=== PATIENT | male | born 1985 | race Caucasian/White ===

== ENCOUNTER 2018-03-10 11:28 | Day surgery (SDC) | payer BC, SELFPAY ==
--- NOTE | 2018-03-10 13:26 | PCM.PN.BLA ---
Progress Note My partner has seen and evaluated this patient has been appropriately worked up. He has a distal rupture of the patella tendon of the tubercle. He has been consented for repair. On examination he lacks an appropriate extensor mechanism. He has a palpable defect. MRI was reviewed. I discussed the history with the patient. I agree with my partners physical and examination. I have marked the H&P appropriately. At this time patient is comfortable proceeding with surgery with myself as my daughter was sick this week and unable to do his surgery and an expedient manner. Patient demonstrates the risk of the procedure including but not limited to blood loss, DVTs, PEs, neurovascular damage, infection, the risk of anesthesia including loss of life. Also risk of chronic weakness rerupture and instability. Patient demonstrates an understanding is comfortable with me assuming his care and would like to proceed as such. [facility] Office:
[2018-03-10 14:53] VITALS: BP 124/75; BP 150/85; PULSE 72; RESP 17; TEMP 36.3; O2SAT 100
[2018-03-10 15:00] VITALS: BP 136/77; BP 150/85; PULSE 65; RESP 16; O2SAT 100
[2018-03-10 15:15] VITALS: BP 121/92; BP 150/85; PULSE 90; RESP 18; O2SAT 97
[2018-03-10 15:30] VITALS: BP 130/73; BP 150/85; PULSE 63; RESP 18; TEMP 36.4; O2SAT 100
[2018-03-10] MEDS: HYDROcodone Bitartrate/Apap 5/325 Tablet PO (16:30)
--- NOTE | 2018-03-10 17:33 | PCM.OPRPT ---
Report of Operation Date of Procedure: 03/10/18 Pre-Operative Diagnosis: Left knee patella tendon rupture Post-Operative Diagnosis: Left knee patella tendon rupture Surgery/Procedure Performed:: Left knee patella tendon rupture repair Description of Surgical Findings:: Mid substance patellar tendon repair repaired distal over proximal with bone tunnels in the tibia Minimal tension on the repair until 30 degrees flexion. Repaired in full extension steam box tender: Paulino Hodges Type of Anesthesia:: Spinal Anesthesiologist: Camacho Rosado Special Medications: clindamycin Estimated Blood Loss (mL): 20 Fluids Replaced: Crystalloid Description of Procedure: Brief History Operative Indications: 32-year-old male who fell on the ice with MRI confirming quadriceps tendon repair and lacking extensor mechanism on examination. On the date of procedure patient's left lower extremity is was marked in the preoperative area. The patient was then taken back to the operating room where they were placed on the table in the supine position. All bony prominences were identified a well-padded. Anesthesia assumed control of the C-spine and airway and remained controlled throughout the remainder of the procedure. A tourniquet was placed on the left upper thigh and the left leg was prepped in a sterile fashion. The surgeon scrubbed at this time. Upon reentering the room the left extremity was draped in a standard orthopedic fashion. A timeout was then called and everyone agreed upon the side, the site, the procedure to be performed, patient's identity and antibiotics given. Attention was directed to the left leg where a midline incision was made. Dissection was taken down through skin, subcutaneous tissues and fat. At this point we were able to identify the rupture and got a gush of serosanguineous fluid. The wound was copiously irrigated with normal saline. The proximal aspect of the patella patella tendon was debrided to healthy tissue. The distal portion was also debrided and identified. At this time it looked like a mid substance type rupture with the majority of the healthy tissue being proximally. It appeared that the proximal tissue was also deeper tissue. At this time we elected to perform a pants over vest type repair. Allis clamps were then placed on the patella tendon tendon was pulled distally. 2 #5 FiberWire's were used to place 2 Krak?w stitches giving us all 4 suture limbs. At this time the 4 limbs were passed distally and tied down through the area of the patella tendon which was attached to the tibial tubercle. We then drilled to bone tunnels and passed the 2 limbs of each tied down FiberWire through a separate bone tunnel and tied this down over bone tunnels in the tibial crest. Finally a #2 FiberWire was used to sew the retinacular repair over the central portion of the tendon. The tendon repair was stressed and did not see stress until 30of flexion.The wound was irrigated out with normal saline. Skin was closed with 2-0 Vicryl and sheryl. A sterile compressive dressing was placed. A knee immobilizer brace was then placed on the operative extremity locked in extension. Patient was awakened by anesthesia and transferred to the [facility] then taken to the PACU for recovery. Post op plan PT: Toe-touch weightbearing with TROM brace locked in extension 2 weeks with transition to partial weightbearing 50% at the 2-week postop visit until 6 weeks postop Brace: locked in extension until 2 weeks postop at which time we will proceed with range of motion. At first visit patient should have 1 PT visit with brace opened to 0-45 flexion with flexion advanced 15 degrees per week. Patient may also start quad sets and straight leg raises at first visit. Goal is 90 degrees of flexion at 9 weeks postop. Will begin strengthening at 9 weeks. Prior to 9 weeks pt only allowed active flexion and passive extension. Follow up: 2 weeks for wound check and removal of sheryl - Complications none - Admit VTE Documentation VTE Present on Admission: No VTE Mechan Device Prophylaxis: SCD's VTE Pharm Prophylaxis ordered?: Yes
[2018-03-10 20:01] VITALS: BP 112/60; BP 150/85; PULSE 78; RESP 16; TEMP 36.8; O2SAT 99
--- OUTSIDE RECORDS SUMMARY | 2018-06-11 20:31 | XMS RPT_ITS ---
:1985 Author Organization OHIP Care Team Providers Name Role Phone CHRISTO ATKINS DO Attending Unavailable PHYSICIAN, NONE Primary Care Unavailable DR. JESSEE WEAVER DO Attending Unavailable WILBERT JAIMES, DR. BARTOLO Rutherford Primary Care Unavailable BOZENA RUEDA MD Attending Unavailable WILBERT JAIMES, DR. BARTOLO Rutherford Primary Care Unavailable YANG SANCHEZ MD Attending Unavailable YANG SANCHEZ MD Referring Unavailable WILBERT JAIMES, DR. BARTOLO Rutherford Primary Care Unavailable Primay Care Physicia, No Primary Care Unavailable Yang Sanchez Attending Yang Reilly Referring Unavailable PROBLEMS PROBLEMS No Problem Records FoundPROCEDURES PROCEDURES No Procedure Records FoundRESULTS RESULTS UA Collected: 03/25/2018 Status: F Source: [facility] 10:35 [facility] REPOSITORY TYPE CODE TESTS RESULT OUT OF RANGE REFERENCE UNITS LAB SPCUA(JUDITH NC) UA Specimen Type Clean Catch LAB CLRUA(JUDITH NC) UA Color Yellow LAB APPUA(JUDITH Clear NC) UA Appear Clear LAB SGUA(LOIN C) UA Spec Grav 1.025 LAB GLUA(LOIN Negative mg/dL C) UA Glucose Negative LAB BILUA(JUDITH Negative NC) UA Bili Negative LAB KETUA(JUDITH Negative mg/dL NC) UA Ketones Negative LAB BLDUA(JUDITH Negative NC) UA Blood Unknown Moderate LAB PHUA(LOIN C) UA pH 5.0 LAB PROUA(JUDITH Negative mg/dL NC) UA Protein Negative LAB UROUA(JUDITH E.U./dL NC) UA Urobilinogen 0.2 LAB NITUA(JUDITH Negative NC) UA Nitrite Negative LAB LEUUA(JUDITH Negative NC) UA Leuk Est Unknown Small Performed By: #### UA, UAMICAO #### [place] [address] .URINALYSIS MICROSCOPIC Collected: 03/25/2018 Status: F Source: [facility] 10:35 [facility] REPOSIT[facility] TYPE CODE TESTS RESULT OUT OF RANGE REFERENCE UNITS LAB WBCUA(LOIN None Seen /hpf C) Unknown UA WBC 0-5 LAB RBCUA(LOIN None Seen /hpf C) Unknown UA RBC 15-25 LAB EPIUA(LOIN None Seen /hpf C) UA Squam Epithelial None Seen Performed By: #### UA, UAMICAO #### [place] [address] Observed: 03/25/2018 Status: F Source: [facility] 10:35 [facility] REPOSITORY . MICRO - Microbiology PROCEDURE: Urine Culture [*1] SOURCE: Urine, Clean Catch BODY SITE: COLLECTED DATE/TIME: 03/25/2018 22:35 EST RECEIVED DATE/TIME: 03/26/2018 14:57 EST START DATE/TIME: 03/26/2018 14:57 EST FREE TEXT SOURCE: FINAL REPORTS Final Report [] Verified Date/Time/Personnel: 03/28/2018 06:58 EST No growth at 48 hours. PRELIMINARY REPORTS Preliminary Report [] Verified Date/Time/Personnel: 03/27/2018 08:23 EST No growth to date Performing Locations *1: This test was performed at: [facility], [address] [place] [address], [address] , [facility] Performed By: #### CUR #### [facility] [address] [place] [address] ABDOMEN/PELVIS W/O Observed: 03/25/2018 Status: F Source: [facility]52 [facility] ORIGINAL CT ABDOMEN/PELVIS W/O CONTRAST CLINICAL STATEMENT: abdominal pain. RIGHT flank pain. COMPARISON: None TECHNIQUE: Axial images were obtained from the lung bases through the pubic symphysis. Coronal and sagittal reformatted images were generated from the axial dataset. This exam was performed according to our departmental dose optimization program, and includes the following measures where applicable: automated exposure control, adjustment of the mAs and/or kVp according to patient size and/or exam, and an iterative reconstruction algorithm. FINDINGS: There is mild RIGHT hydroureteronephrosis and minimal RIGHT perinephric stranding. There is a 6 mm calculus in the upper pole of the RIGHT kidney and a 3 mm calculus in the lower pole of the R IGHT kidney. There is also a 5 mm calculus at the RIGHT ureterovesical junction. There is a punctate, nonobstructing renal calculus in the LEFT lower pole. The LEFT ureter is unremarkable. The urinary bladder is collapsed and not well evaluated. The visualized liver and spleen are unremarkable for noncontrast examination. The noncontrasted gallbladder, pancreas and adrenal glands are normal. The small and large bowel are normal in course and caliber. There is no free fluid or free air. No adenopathy is identified. There is no acute osseous abnormality. IMPRESSION: Mild RIGHT hydroureteronephrosis secondary to 5 mm calculus at the RIGHT ureterovesical junction. Bilateral nephrolithiasis. I have personally reviewed the images of this examination and agree with the resident's findings and interpretation. Interpreted By: Ludwin Sanchez MD Preliminary Report By: Debbie Rincon DO Electronically Signed By: Ludwin Sanchez MD Dictated Date: 03/25/2018 10:06:21 PM Prelim Date: 03/25/2018 10:13:17 PM Sign Date: 03/25/2018 10:15:01 PM CBC Collected: 03/25/2018 Status: F Source: [facility] 9:25 PM [facility] REPOSITORY TYPE CODE TESTS RESULT OUT OF REFERENCE UNITS RANGE LAB WBC(LOINC) 4.60-10.80 10 3/mcL WBC 9.70 LAB RBCCT(LOINC 4.04-6.13 10 6/mcL ) RBC 5.54 LAB HGB(LOINC) 14.0-18.0 G/dL Hgb 15.3 LAB HCT(LOINC) 42.0-52.0 % Hct 44.2 LAB MCV(LOINC) 80.0-94.0 fL Low MCV 79.9 LAB MCH(LOINC) 27.0-31.2 pg MCH 27.6 LAB MCHC(LOINC) 31.8-35.4 G/dL MCHC 34.6 LAB RDW(LOINC) 11.5-14.5 % RDW 13.2 LAB PLT(LOINC) 130-400 10 3/mcL Platelet 376 LAB MPV(LOINC) 7.4-10.4 fL MPV 7.9 Performed By: #### CBC, ADIFF, ANEU #### [place] [address] [place], [place] [address] #### BMP, GFR #### [address] [address] .AUTO DIFF Collected: 03/25/2018 Status: F Source: [facility] 9:25 [facility] REPOSITORY TYPE CODE TESTS RESULT OUT OF REFERENCE UNITS RANGE LAB ERASMO(LOINC) 37.0-80.0 % Neutrophil % 67.9 LAB LYM(LOINC) 10.0-50.0 % Lymphocyte % 24.2 LAB MON(LOINC) 1.7-13.0 % Monocyte % 6.0 LAB EO(LOINC) 0.0-7.0 % Eosinophil % 1.3 LAB BAS(LOINC) 0.0-2.5 % Basophil % 0.6 LAB ABLYM(LOIN 0.77-3.85 10 3/mcL C) Lymphocyte, 2.30 Absolute LAB BEENA(LOINC 0.15-1.00 10 3/mcL ) Monocyte, 0.60 Absolute LAB AEOS(LOINC 0.00-0.40 10 3/mcL ) Eosinophil, 0.10 Absolute LAB ABAS(LOINC 0.00-0.19 10 3/mcL ) Basophil, 0.10 Absolute Performed By: #### CBC, ADIFF, ANEU #### [place] [address] [place], [place] [address] #### BMP, GFR #### [address] [address] .NEUABS Collected: 03/25/2018 Status: F Source: [facility] 9:25 PM [facility] REPOSITORY TYPE CODE TESTS RESULT OUT OF REFERENCE UNITS RANGE LAB ANEU(LOINC) 2.85-6.16 10 3/mcL High Neutrophil, 6.60 Absolute Performed By: #### CBC, ADIFF, ANEU #### [address] [address] #### BMP, GFR #### [address] [address] BMP Collected: 03/25/2018 Status: F Source: [facility] 9:25 [facility] REPOSITORY TYPE CODE TESTS RESULT OUT OF REFERENCE UNITS RANGE LAB GLU(LOINC) 70-105 mg/dL Glucose High Level 141 LAB NA(LOINC) 136-145 mmol/L Sodium Level 141 LAB K(LOINC) 3.5-5.1 mmol/L Potassium Level 3.5 LAB CL(LOINC) 98-107 mmol/L Chloride 102 LAB CO2(LOINC) 22-29 mmol/L CO2 26 LAB EBAL(LOINC mEq/L ) Electrolyte Balance 13.0 LAB BUN(LOINC) 7-18 mg/dL BUN 12 LAB CRE(LOINC) 0.70-1.30 mg/dL Creatinine Lvl (s) 1.00 LAB BC(LOINC) 7-27 ratio BUN/Creatinine 12 Ratio LAB CA(LOINC) 8.4-10.2 mg/dL Calcium Lvl High 10.4 Performed By: #### CBC, ADIFF, ANEU #### [address] [address] #### BMP, GFR #### [address] [address] .GFR Collected: 03/25/2018 Status: F Source: [facility] 9:25 PM [facility] REPOSITORY TYPE CODE TESTS RESULT OUT OF REFERENCE UNITS RANGE LAB GFRAA(LOINC ml/min/1.73 ) sqm GFR 106 [place] Result Comment: GFR Population mean for , Non- Americans Ages 20-29 = 116 mL/min/1.73 sq.m. Ages 30-39 = 107 mL/min/1.73 sq.m. Ages 40-49 = 99 mL/min/1.73 sq.m. Ages 50-59 = 93 mL/min/1.73 sq.m. Ages 60-69 = 85 mL/min/1.73 sq.m. Ages 70+ = 75 mL/min/1.73 sq.m. Chronic Kidney Disease: Less than 60 mL/min/1.73 square meters End Stage Renal Disease: Less than 15 mL/min/1.73 square meters LAB GFRNO(LOINC) ml/min/1.73sqm GFR Non- 87 Result Comment: GFR Population mean for , Non- Americans Ages 20-29 = 116 mL/min/1.73 sq.m. Ages 30-39 = 107 mL/min/1.73 sq.m. Ages 40-49 = 99 mL/min/1.73 sq.m. Ages 50-59 = 93 mL/min/1.73 sq.m. Ages 60-69 = 85 mL/min/1.73 sq.m. Ages 70+ = 75 mL/min/1.73 sq.m. Chronic Kidney Disease: Less than 60 mL/min/1.73 square meters End Stage Renal Disease: Less than 15 mL/min/1.73 square meters Performed By: #### CBC, ADIFF, ANEU #### [address] [address] #### BMP, GFR #### [address] [address] OPERATIVE REPORT Observed: 03/10/2018 Status: F Source: [place] 5:44 PM [facility] [place] [facility] Medical Records Department [address] [place] [address] Operative Report 03/10/18 1733 MR#: [id number] Acct: [id number] Name: CHRISTOPHER HERNANDEZ Alfonso Rep #: [id number] : 1985 32 From: Yang Sanchez MD PCP: Care Physician, No Primary Status: REG SDC Y Location: [address] ADDENDUM by Yang Sanchez MD on 03/10/18 at 1744 Code Visit My physician certified pharmacist assistant was a vital part of this case. He was important in appropriate retraction during the case, and protection of soft tissues. His intimate knowledge of the case and my steps aided in safe and expedient completion of the procedure as well as appropriate position of the leg during the case. He was also vital in assisting with closure under my direct supervision. 03/10/181743 <Electronically signed by Yang Sanchez MD> Date Yang Sanchez MD cc: No Primary Care Physician; Yang Sanchez MD * Signed Report of Operation Date of Procedure: 03/10/18 Pre-Operative Diagnosis: Left knee patella tendon rupture Post-Operative Diagnosis: Left knee patella tendon rupture Surgery/Procedure Performed:: Left knee patella tendon rupture repair Description of Surgical Findings:: Mid substance patellar tendon repair repaired distal over proximal with bone tunnels in the tibia Minimal tension on the repair until 30 degrees flexion. Repaired in full extension rolled materials worker: Paulino Hodges Type of Anesthesia:: Spinal Anesthesiologist: Camacho Rosado Special Medications: clindamycin Estimated Blood Loss (mL): 20 Fluids Replaced: Crystalloid Description of Procedure: Brief History Operative Indications: 32-year-old male who fell on the ice with MRI confirming quadriceps tendon repair and lacking extensor mechanism on examination. On the date of procedure patient's left lower extremity is was marked in the preoperative area. The patient was then taken back to the operating room where they were placed on the table in the supine position. All bony prominences were identified a well-padded. Anesthesia assumed control of the C-spine and airway and remained controlled throughout the remainder of the procedure. A tourniquet was placed on the left upper thigh and the left leg was prepped in a sterile fashion. The surgeon scrubbed at this time. Upon reentering the room the left extremity was draped in a standard orthopedic fashion. A timeout was then called and everyone agreed upon the side, the site, the procedure to be performed, patient's identity and antibiotics given. Attention was directed to the left leg where a midline incision was made. Dissection was taken down through skin, subcutaneous tissues and fat. At this point we were able to identify the rupture and got a gush of serosanguineous fluid. The wound was copiously irrigated with normal saline. The proximal aspect of the patella patella tendon was debrided to healthy tissue. The distal portion was also debrided and identified. At this time it looked like a mid substance type rupture with the majority of the healthy tissue being proximally. It appeared that the proximal tissue was also deeper tissue. At this time we elected to perform a pants over vest type repair. Allis clamps were then placed on the patella tendon tendon was pulled distally. 2 #5 FiberWire's were used to place 2 Krak w stitches giving us all 4 suture limbs. At this time the 4 limbs were passed distally and tied down through the area of the patella tendon which was attached to the tibial tubercle. We then drilled to bone tunnels and passed the 2 limbs of each tied down FiberWire through a separate bone tunnel and tied this down over bone tunnels in the tibial crest. Finally a #2 FiberWire was used to sew the retinacular repair over the central portion of the tendon. The tendon repair was stressed and did not see stress until 30of flexion.The wound was irrigated out with normal saline. Skin was closed with 2-0 Vicryl and sheryl. A sterile compressive dressing was placed. A knee immobilizer brace was then placed on the operative extremity locked in extension. Patient was awakened by anesthesia and transferred to the [facility] then taken to the PACU for recovery. Post op plan PT: Toe-touch weightbearing with TROM brace locked in extension 2 weeks with transition to partial weightbearing 50% at the 2-week postop visit until 6 weeks postop Brace: locked in extension until 2 weeks postop at which time we will proceed with range of motion. At first visit patient should have 1 PT visit with brace opened to 0-45 flexion with flexion advanced 15 degrees per week. Patient may also start quad sets and straight leg raises at first visit. Goal is 90 degrees of flexion at 9 weeks postop. Will begin strengthening at 9 weeks. Prior to 9 weeks pt only allowed active flexion and passive extension. Follow up: 2 weeks for wound check and removal of sheryl - Complications none - Admit VTE Documentation VTE Present on Admission: No VTE Mechan Device Prophylaxis: SCD's VTE Pharm Prophylaxis ordered?: Yes 03/10/18 1742 <Electronically signed by Yang Sanchez MD> Date Yang Sanchez MD CC: No Primary Care Physician; Yang Sanchez MD Signed MRI KNEE W/O CONTRAST Observed: 03/02/2018 Status: F Source: [facility] 8:00 [facility] REPOSITORY ORIGINAL MRI KNEE W/O CONTRAST LEFT CLINICAL STATEMENT: PAIN IN LFT KNEE , injury, patient is unable to bend the legs COMPARISON: Radiographs 02/20/2018 FINDINGS: There is cephalad migration of the patella consistent with patella freddy due to a high-grade tear of the patellar tendon. There is moderate laxity of the tendon with extensive abnormal signal throughout the tendon. There seems to be high-grade tear of about 1.5 cm length in the distal tendon 2.5 cm proximal to the tibial tuberosity. Intrinsic signal in the tendon with thickening is suggestive of the ex isting tendon degeneration. There is no bone marrow edema in the tibial tuberosity or the lower pole of the patella. Moderate surrounding soft tissue edema is present. On the axial images, there is only mild lateral subluxation and tilting of the patella. There is however abnormal morphology and signal in the medial and lateral patellar retinacula. The medial retinacu lum and the medial patellofemoral ligament fibers are moderately definable replaced by extensive abnormal signal consistent with a high-grade strain/tear. There is similarly thickening and increased sig nal in the lateral retinaculum with a small area off complete/near-complete discontinuity. The distal quadriceps tendon shows mild degeneration near the superior pole of the patella. It is otherwise intact. Bone marrow signal in the knee is normal. The medial and lateral femorotibial compartments show no focal or high-grade cartilage defects. The menisci show no significant degeneration or tearing. Cruciate ligaments are normal. Collateral ligaments and major lateral supporting structures are also intact. There is only a small joint effusion. No popliteal cyst. There is extensive soft tissue edema around the knee most pronounced anteriorly and laterally. There is no high-grade patellar or trochlear chondromalacia. IMPRESSION: There is a high-grade tear of the patellar tendon with evidence of underlying pre-existing tendinopathy. There is also moderate to high-grade strain/tear of the medial and lateral patellar retinacula. M ild degeneration of the distal quadriceps tendon. No significant internal derangement is seen in the knee. Interpreted By: Ke Lindo MD Preliminary Report By: Ke Lindo MD Electronically Signed By: Ke Lindo MD Dictated Date: 03/03/2018 1:19:50 PM Prelim Date: 03/03/2018 1:19:50 PM Sign Date: 03/03/2018 1:28:27 PM XR KNEE 1 OR 2 Observed: 02/20/2018 Status: F Source: [facility] LEFT 8:20 AM [facility] REPOSITORY ORIGINAL LEFT knee AP and lateral 2 views Clinical Statement: pain, , trauma, pain Comparison: None Findings: There is no visualized acute fracture or dislocation. No radio- opaque foreign body or soft tissue gas is seen. No significant joint effusion. Early degenerative change. IMPRESSION: No acute fracture seen. Interpreted By: Ke Lindo MD Preliminary Report By: Ke Lindo MD Electronically Signed By: Ke Lindo MD Dictated Date: 02/20/2018 8:28:32 AM Prelim Date: 02/20/2018 8:28:32 AM Sign Date: 02/20/2018 8:29:06 AM ALLERGIES ALLERGIES DATE TYPE / CODE NAME / CODE REACTION SEVERITY SOURCE 03/05/2018 Drug Penicillins/ Hives Unknown [facility] Allergy/4160 [id number]( Hospital [address](SNOMED XNORM) Repository CT) 03/05/2018 Drug amoxicillin/ Hives Unknown [facility] Allergy/4160 [id number]([facility] [address](SNOMED XNORM) Repository CT) ENCOUNTERS ENCOUNTERS ADMIT/DISCHARGE ACCOUNT NUMBER ADMITTING ENCOUNTER LOCATION SOURCE CLASS 04/01/2018 [id number] Ambulatory BBuilding:[facility] Repository 03/25/2018/03/25/19 [id number] Emergency BBuilding:ER [address] Repository 03/10/2018/03/10/20 [id number] [place] [facility] ding:[facility] Repository 03/02/2018/03/02/20 [id number] Ambulatory BBuilding:RA [place] 18 D [facility] Repository 02/20/2018/02/21/20 [id number] Emergency BBuilding:ER [place] 18 O [facility] Repository PAYERS PAYERS ENCOUNTER GUARANTOR PAYER SUBSCRIBER SOURCE 04/01/2018 CHRISTOPHER N Primary CHRISTOPHER Hamilton [facility] LEFEVERDOB: Insurance:[employer]HE[employer] BLUE LEFEVERDOB: [facility] [id number] Repository CINDI WHIPPLE Number: [address] [place], [place] [id number] [address]~[email or web address]@ Date:2018-03-30 [id number]: [phone] [email or web address]: [phone] Name:BPO BOX (HP)Tel: [phone]) (HP) [phone], [place] 000-0000 () [id number]: 03/25/2018 CHRISTOPHER Hamilton Primary CHRISTOPHER Hamiltno [facility] LEFEVERDOB: Insurance:[facility] LEFEVERDOB: [facility] [id number] Repository [address] Number: [address] [place], [place] [id number] [place], [place] [address]Pff: [phone]) Date:2018-03-25 [phone]: () [id number] [phone] Name:BPO BOX (HP)Tel: [phone]) [phone], [place] 000-0000 (WP) [phone]: 03/10/2018 CHRISTOPHER N Primary CHRISTOPHER N Mitch [id number] N Insurance:ANTHEMPolic LEFEVERDOB: [facility] SOLE Number: [id number] [place], [place] [id number] Repository [address]Xwb: [phone]) Date:[phone] (HP) [phone], [place] [address]LX: 03/10/2018 Secondary NOT GIVENUNK Mitch Insurance:SELF PAY [facility] Number: Effective Repository Date:2018-03-04 03/02/2018 [facility] EREVERDOB: [facility] [id number] Repository [address]I [address] Number: [address] [place], [place] [id number] [address]~[email or web address]@ Date:2018-02-23 [phone]: [phone] [email or web address]: [phone] ( Name:JERRELL WISE (HP)Tel: [phone]) (HP) [phone], [place] 000-0000 () [id number]: 02/20/2018 CHRISTOPHER [facility] LEFEVERDOB: Insurance:[facility] EREVERDOB: [facility] [id number] Repository CINDI WHIPPLE Number: [address], [place] [id number], [place] [address]Tln: [phone] Date:2018-02-20 [phone]: () [id number] [phone] Name:JERRELL BOX (HP)Tel: [phone]) [phone] [place] 000-0000 (WP) [phone]:
== END 2018-03-10 20:03 | disposition home or self-care (01) ==
LOC: SDC 11:30 → AC 11:31
PROVIDERS: Referring Provider Specialist; Visit Provider Specialist
PROC: (CPT 27380; principal; 2018-03-10 13:15)
DX: S86.812A Strain of other muscle(s) and tendon(s) at lower leg level, left leg, initial encounter (principal); E66.9 Obesity, unspecified; Z68.42 Body mass index [BMI] 45.0-49.9, adult; W00.9XXA Unspecified fall due to ice and snow, initial encounter
CPT/HCPCS: 27380; 64445; J7120